=== PATIENT | male | born 1995 | race Hispanic/Latino ===

== ENCOUNTER 2017-12-06 00:41 | Emergency (ER) | payer MEDICAID ==
[2017-12-06] MEDS ORDERED: TETANUS/DIPHTHERIA TOXOID [ADULT] 0.5 ML VIAL IM ONE (01:35)
== END 2017-12-06 02:45 | disposition home or self-care (01) ==
LOC: EDH 00:41
DX: S91.311A Laceration without foreign body, right foot, initial encounter (principal); Z91.018 Allergy to other foods; W26.8XXA Contact with other sharp object(s), not elsewhere classified, initial encounter; Y93.89 Activity, other specified; Y92.098 Other place in other non-institutional residence as the place of occurrence of the external cause; Y99.8 Other external cause status
CPT/HCPCS: 12002; 73630; 90471; 90714